=== PATIENT | male | born 1955 | race Caucasian/White ===

== ENCOUNTER → 2016-12-25 | Outpatient (CLI) | payer BC ==
[~2016-12-25] MED LIST: ATOR10TA PO; EZET10TA5 PO; HYDR-757 PO; IBUP-1780 PO; KETO10TA PO; LEVO500T2 PO; TAMS0.4C98 PO
--- NOTE | 2016-12-25 11:10 | STRESS TEST ---
PROCEDURE PHYSICIAN: JYOTI ANGUIANO EXERCISE STRESS ECHOCARDIOGRAM REPORT: DATE OF PROCEDURE: 12/25/2016 REFERRING PHYSICIAN: Dr. Jasper Lowery INDICATION FOR THE PROCEDURE: Hypertension, hyperlipidemia, family history of heart disease. Baseline heart rate is 65, baseline blood pressure: 192/108. Baseline EKG: Sinus rhythm with no ischemic changes. SUMMARY: The patient started exercising with a baseline heart rate, blood pressure and EKG mentioned above. He was able to exercise for a total of 4 minutes 30 seconds on standard René protocol. The test was terminated after the patient achieved maximum heart rate of 166, which is over 100% of maximum expected heart rate. With peak exercise level, the patient had occasional PVCs, blood pressure was 230/87, EKG was showing minimal nondiagnostic changes. During recovery, heart rate and blood pressure returned to baseline. EKG returned to baseline. Echocardiographic images were acquired and reviewed in the parasternal long axis parasternal short axis, apical 4 chamber and apical 2 chamber views. Review of the images showed normal left ventricular size with normal contractility with no ischemic changes. CONCLUSION: 1. Fair exercise tolerance a total of 4 minutes 30 seconds on standard René protocol. Total 7 METs achieving over 100% of maximum expected heart rate. 2. Baseline hypertension with severe hypertensive response to exercise returned to baseline during recovery. 3. Minimal nondiagnostic EKG changes with exercise. Returned to baseline during recovery. 4. Occasional PVCs noted during peak stress level. Job ID: [id number] Dictated Date: 12/25/2016 10:57:35 Inspector Semiconductor Wafer Date: 12/25/2016 11:04:54 / joao
--- NOTE | 2016-12-25 11:13 | ECHOCARDIOGRAPHY REPORT ---
PROCEDURE PHYSICIAN: JYOTI ANGUIANO DATE OF PROCEDURE: 12/25/2016 TWO DIMENSIONAL ECHOCARDIOGRAM REPORT PRIMARY PHYSICIAN: OTHER PHYSICIAN: REFERRING PHYSICIAN: Dr. Lowery ORDERING PHYSICIAN: INDICATION FOR THE PROCEDURE: Hypertension, hyperlipidemia MEASUREMENTS DERIVED VALUES LV DIAMETER (LAX) NORMALS NORMALS Diastolic 3.8 (3.6-5.2) Eject. Fract. 60% (60%+/-6%) Systolic (2.3-3.9) Diastolic Vol. % Shortening (0.22-0.42) Systolic Vol. Aortic Root IVS THICKNESS Diastolic 1.3 (0.6-1.1) LVPW THICKNESS Diastolic 1.3 (0.6-1.1) LA DIAMETER Systolic 3.6 (2.1-3.7) FINDINGS: 1. Technical quality is good. 2. The left ventricle is normal in size with moderate left ventricular hypertrophy noted diffusely. Systolic function appeared to be normal. Estimated ejection fraction 60%. Diastolic dysfunction is suggested by Doppler. 3. The left atrium is normal in size. No clot or thrombus were seen within the left atrium. 4. The right atrium and right ventricle are normal in size. No clot or thrombus were seen within the right side. 5. Mitral valve is calcified with mild mitral regurgitation noted by color Doppler flow. No mitral valve prolapse. No mitral valve stenosis. 6. Aortic valve is trileaflet with normal opening and closing pattern. No significant aortic stenosis or regurgitation was seen. 7. Tricuspid valve is normal in morphology with mild tricuspid regurgitation noted by color Doppler flow. Doppler across tricuspid valve estimated pulmonary artery pressure of 6+ right atrial pressure. 8. Pulmonic valve is functioning normally. 9. No pericardial effusion. CONCLUSION: 1. Moderate left ventricular hypertrophy noted diffusely with normal systolic function. Estimated ejection fraction 60%. Diastolic dysfunction is suggested by Doppler. 2. Mild mitral and tricuspid regurgitation. 3. Estimated pulmonary artery pressure of 15 mmHg. Job ID: [id number] Dictated Date: 12/25/2016 10:59:36 Float Operator Date: 12/25/2016 11:09:10 / joao
== END ==
LOC: CARD 08:25
PROVIDERS: ATTEND Internal Medicine Cardiovascular Disease
DX: I10 Essential (primary) hypertension (principal); E78.2 Mixed hyperlipidemia; Z82.49 Family history of ischemic heart disease and other diseases of the circulatory system
CPT/HCPCS: 93306; 93351

== ENCOUNTER 2017-10-11 09:00 | Outpatient (CLI) | payer BC ==
[~2017-10-11] VITALS: Ht 180.3 cm; Wt 88.5 kg
[2017-10-11] MEDS ORDERED: ENAL20TA PO (09:28)
[2017-10-11] MEDS ORDERED: ATOR40TA70 PO (09:28)
== END 2017-10-11 09:41 ==
LOC: PREOP 09:00
PROVIDERS: ATTEND Surgery
DX: Z01.818 Encounter for other preprocedural examination (principal); Z12.11 Encounter for screening for malignant neoplasm of colon; Z80.0 Family history of malignant neoplasm of digestive organs

== ENCOUNTER → 2023-07-17 | Outpatient (CLI) | payer BC ==
[~2023-07-17] MED LIST changes: +ATOR40TA70 PO; +ENAL-70 PO; +HYDR-4226 PO; -HYDR-757 PO; -TAMS0.4C98 PO; +TMSL.4C PO
--- NOTE | 2023-07-17 09:18 | Diagnostic Imaging Report ---
PROCEDURE: US carotid duplex bilateral. TECHNIQUE: Multiple Real-time grayscale images were obtained over the carotid arteries in various projections, bilaterally. Additional spectral analysis and color Doppler duplex images were also obtained. INDICATION: Carotid stenosis. FINDINGS: There is mild plaque in both carotid bulbs and bifurcations. The velocities are normal, however, bilaterally. No high-grade stenosis or occlusion is detected. Both vertebral arteries show antegrade flow. IMPRESSION: Mild bilateral carotid plaque. There is no evidence of a hemodynamically significant stenosis. Parameters based on the consensus panel [employer] and Doppler ultrasound criteria published August 2003, Radiology, Volume 229. DOPPLER (peak systolic velocity M/S Right Left CCA .78 .80 ICA Proximal .63 .73 ICA Mid .83 .73 ICA Distal .72 .87 RATIO 1.06 0.92 ECA .103 .102 VERT .43 .57 Dictated by: Dictated on workstation # [id number]
== END ==
LOC: RAD 08:00
PROVIDERS: ATTEND Family Medicine
DX: I65.23 Occlusion and stenosis of bilateral carotid arteries (principal)
CPT/HCPCS: 93880

== ENCOUNTER 2023-08-08 05:45 | Outpatient (CLI) | payer BC ==
[~2023-08-08] VITALS: Ht 180.3 cm; Wt 85.7 kg
[2023-08-10] MEDS ORDERED: OMEG-90 PO (15:32)
[2023-08-10] MEDS ORDERED: LOVA40TA2 PO (15:32)
[2023-08-10] MEDS ORDERED: ZINC30CA PO (15:32)
[2023-08-10] MEDS ORDERED: GABA300S3 PO (15:32)
== END 2023-08-10 15:39 | disposition home or self-care (01) ==
LOC: PREOP 05:45
PROVIDERS: ATTEND Surgery
DX: Z01.818 Encounter for other preprocedural examination (principal)

== ENCOUNTER 2023-08-21 09:55 | Day surgery (SDC) | payer BC ==
[~2023-08-21] VITALS: Ht 180.3 cm; Wt 85.7 kg
[~2023-08-21 09:55] MED LIST changes: +GABA300S3 PO; +LOVA40TA2 PO; +OMEG-90 PO; +ZINC30CA PO
[2023-08-21] MEDS ORDERED: LACTATED RINGERS 1,000 ML 1,000 ML IV STA (10:06)
[2023-08-21] MEDS ORDERED: HURRICAINE EXT TUBE (BENZOCAINE) XX ONE (10:15)
--- NOTE | 2023-08-21 10:18 | Progress Note-Pre Operative ---
Pre-Operative Progress Note Date H&P Reviewed: Aug 21, 2023 Time H&P Reviewed: 10:17 History & Physical: H&P Reviewed, Patient Examed, No changes noted Pre-Operative Diagnosis: history of colon polpy, GERD with esophagitis LUIS ANTONIO DOW DO Aug 21, 2023 10:18
[2023-08-21 10:25] VITALS: BP 127/78
[2023-08-21 12:55] VITALS: BP 112/58
--- NOTE | 2023-08-21 12:56 | Progress Note-Post Operative ---
Post-Operative Progess Note Surgeon (s)/Adzing And Boring Machine Operator (s) Surgeon LUIS ANTONIO DOW DO Adzing And Boring Machine Operator: n/a Pre-Operative Diagnosis history of colon polpy, GERD/EGD/COLONOSCOPY Post-Operative Diagnosis duodenitis, reflux esophagitis, diverticulosis Procedure & Operative Findings Date of Procedure 08/21/23 Procedure Performed/Findings EGD with biopsies, colonoscopy with cold biopsies of rectum Anesthesia Type per WAITER/WAITRESS TAVERN Estimated Blood Loss Estimated blood loss (mL): none Specimens/Packing Specimens Removed antrum x1, GE junction x1, rectum bx LUIS ANTONIO DOW DO Aug 21, 2023 12:56
[2023-08-21] MEDS ORDERED: PANT40TA2 PO (12:58)
--- NOTE | 2023-08-21 12:59 | Discharge Inst-Simple/Standard ---
Discharge Inst-Standard Discharge Medications New, Converted or Re-Newed RX: Transmitted to Pharmacy Patient Instructions/Follow Up Plan of Care/Instructions/FU: [address] Andrew for urinary difficulties Activity as Tolerated: Yes Discharge Diet: Regular Diet LUIS ANTONIO DOW DO Aug 21, 2023 12:58
[2023-08-21 13:00] VITALS: BP 97/58
[2023-08-21 13:05] VITALS: BP 96/58
--- NOTE | 2023-08-21 13:12 | Anesthesia-General Post-Op ---
MAC Patient Condition Mental Status/LOC: Same as Preop Cardiovascular: Satisfactory Nausea/Vomiting: Absent Respiratory: Satisfactory Pain: Controlled Complications: Absent Post Op Complications Complications None Follow Up Care/Instructions Patient Instructions None needed. Anesthesiology Discharge Order Discharge Order Patient is doing well, no complaints, stable vital signs, no apparent adverse anesthesia problems. No complications reported per nursing. BARON MURGUIA CRNA Aug 21, 2023 13:12
[2023-08-21 13:16] VITALS: BP 111/71
[2023-08-21 13:25] VITALS: BP 111/71
--- NOTE | 2023-08-21 19:12 | OPERATIVE REPORT ---
DATE OF SERVICE: 08/21/2023 PREOPERATIVE DIAGNOSES: Gastroesophageal reflux disease and history of polyps. POSTOPERATIVE DIAGNOSES: Duodenitis, some reflux esophagitis, diverticulosis, some slight possible colitis. PROCEDURE: EGD with biopsy, colonoscopy with cold biopsies of rectum. SURGEON: Luis Antonio Palma DO ANESTHESIA: Per INCIDENT RESPONSE COORDINATOR. ESTIMATED BLOOD LOSS: None. COMPLICATIONS: None. INDICATIONS: The patient is a 67-year-old male with history of polyps and also reflux. He understands risks and benefits of procedure and wishes to proceed. Consent was signed in chart. DESCRIPTION OF PROCEDURE: The patient was taken to endoscopy suite, placed in left lateral recumbent position. Timeout was performed. The scope was inserted in the mouth, down the esophagus, stomach, into the duodenum without difficulty. No polyps, masses or ulcerations within the second portion of the duodenum. First portion of duodenum had some erythematous changes consistent with duodenitis. Biopsy in the duodenum was obtained. Scope was slowly retracted back into stomach where it was further insufflated. Slight erythematous changes. No polyps, masses or ulcerations in the stomach. Biopsy of the antrum was obtained. Scope was retroflexed, noting no other pathology. Scope was returned to its normal position, slowly withdrawn until distal esophagus. Changes of reflux esophagitis was present. Biopsy of GE junction was obtained. Scope was slowly retracted back until completely removed. Digital rectal exam was performed. No palpable polyps, masses or ulcerations but the prostate felt slightly firm. Scope was inserted in the rectum, noting some erythematous changes within the rectum, possible colitis. Scope was then inserted and advanced all the way to the cecum with minimal difficulty. Prep was adequate. Scope was slowly retracted back. No polyps, masses or ulcerations within the cecum, ascending, transverse, descending and sigmoid colon. In the proximal portion of the rectum, biopsy was obtained of the erythematous changes. Scope was retroflexed, noting some internal hemorrhoids. No other pathology. Scope was returned to its normal position, slowly withdrawn until completely removed. The patient tolerated the procedure well without complications, taken to recovery room in stable condition. RECOMMENDATIONS: The patient will need repeat colonoscopy in 5 years. He had some diverticulosis through the sigmoid, which we would recommend high fiber diet. We would consider consultation, if he has urological issues, with urology. Job ID: [id number] DocumentID: [id number] Dictated Date: 08/21/2023 13:00:59 Master Merchandiser Date: 08/21/2023 19:09:00 Dictated By: LUIS ANTONIO PALMA DO
== END 2023-08-21 13:31 | disposition home or self-care (01) ==
LOC: ENDO 09:55
PROVIDERS: ATTEND Surgery
DX: Z12.11 Encounter for screening for malignant neoplasm of colon (principal); K21.00 Gastro-esophageal reflux disease with esophagitis, without bleeding; K57.30 Diverticulosis of large intestine without perforation or abscess without bleeding; K29.80 Duodenitis without bleeding; K64.8 Other hemorrhoids; K62.89 Other specified diseases of anus and rectum; Z86.010 Personal history of colon polyps
CPT/HCPCS: 88305